=== PATIENT | female | born 1940 | race Caucasian/White ===

== ENCOUNTER 2018-04-05 11:33 | Day surgery (SDC) | payer MEDICARE, BC ==
[~2018-04-05] VITALS: Ht 165.1 cm; Wt 63.6 kg
--- NOTE | ~2018-04-05 | OP ---
PATIENT NAME: SONIA OCHOA MEDICAL RECORD: [id number] :38 LOCATION:[facility] ADMISSION DATE: SURGEON: BAN CHAVEZ MD DATE OF OPERATION: 04/05/2018 PROCEDURE: EGD with biopsy. REFERRING PHYSICIAN: Dr. Edmond Griffith. INDICATIONS: Ms. Ochoa is a delightful 77-year-old woman who has had symptoms of GE reflux and breakthrough heartburn symptoms. She has been taking omeprazole 40 mg twice a day and Carafate 4 times a day and still has breakthrough symptoms. She has also been having diarrhea, although in clinic visit in November 2017, she described having constipation for which she was taking MiraLax. She presents for outpatient EGD. PREMEDICATIONS: Total IV anesthesia (propofol 170 mg) (COPD, obstructive sleep apnea). INSTRUMENT: Olympus video gastroscope. PROCEDURE AND FINDINGS: After receiving informed consent, Ms. Ochoa's posterior pharynx was anesthetized with Cetacaine spray. She was placed in left lateral decubitus position, sedated as per anesthesia. After achieving adequate level of sedation, gastroscope was introduced per orally and advanced into duodenum without difficulty. The esophageal mucosa was without erythema, ulcers, strictures, masses, and appeared normal down the GE junction. A small hiatal hernia is present. Biopsies were taken from the mid and distal esophagus to evaluate for eosinophilic esophagitis and GE reflux. Gastric mucosa was notable for moderate streaky erythema in the distal body of the stomach extending to the antrum. Antral biopsies were obtained to rule out Helicobacter pylori. There were no lesions seen in the cardia, fundus or body of the stomach. There were a few small white mucosal patches in the prepyloric region suggestive of intestinal metaplasia. Pylorus was patent and competent. Duodenal mucosa was without erythema or ulcers and appeared normal through the second portion. Biopsies were taken from the second portion of duodenum to rule out celiac disease. The gastroscope was then withdrawn. Ms. Ochoa tolerated the procedure well, no immediate complications. ASSESSMENT: 1. Small hiatal hernia. 2. Moderate gastritis, may be secondary to nonsteroidal anti-inflammatory drugs, to rule out Helicobacter pylori. RECOMMENDATIONS: 1. Upper GI series. 2. Follow up histopathology. 3. Continue omeprazole 40 mg b.i.d. and Carafate q.i.d. 4. Recommend colonoscopy to evaluate diarrhea and rule out microscopic colitis. TRANSINT:[id number] Voice Confirmation ID: [id number] DOCUMENT ID: [id number] OPERATIVE REPORT [id number] SONIA OCHOA TERRI MD at 1808 CC: [id number] DICTATION DATE: 04/05/18 1415 FOOD CONCESSION MANAGER: 04/05/18 1442 [facility] 04/05/18 [id number] [place] [address]
[2018-04-05 12:05] LABS: HEMATOCRIT 36.7 % (36.0-48.0); HEMOGLOBIN 12.6 g/dL (12-16); MCH 31.4 pg (26.0-34.0); MCHC 34.3 g/dL (31.0-37.0); MCV 91.5 fL (80.0-100.0); MEAN PLATELET VOLUME 9.1 fL (7.4-10.4); RBC 4.01 10x6/uL (4.00-5.40); RDW 13.9 % (11.5-14.5); WBC 4.6 10x3/uL (4.8-10.8)
[2018-04-05] MEDS ORDERED: ASPIRIN81 MG PO (13:00)
[2018-04-05] MEDS ORDERED: BREO ELLIPTA 11 EACH INH (13:00)
[2018-04-05] MEDS ORDERED: REFRESH TEARS15 ML EACH EYE (13:01)
[2018-04-05] MEDS ORDERED: CALCIUM 500 +1 EAC3 PO (13:01)
[2018-04-05] MEDS ORDERED: VOLTAREN100 GM (13:02)
[2018-04-05] MEDS ORDERED: LEXAPRO20 MG PO (13:04)
[2018-04-05] MEDS ORDERED: PLAQUENIL200 MG PO (13:04)
[2018-04-05] MEDS ORDERED: ICAPS MV TAB1 TAB.EC PO (13:05)
[2018-04-05] MEDS ORDERED: ATROVENT HFA12.9 GM INH (13:05)
[2018-04-05] MEDS ORDERED: LEVOXYL50 MCG PO (13:06)
[2018-04-05] MEDS ORDERED: MYRBETRIQ50 MG PO (13:07)
[2018-04-05] MEDS ORDERED: OMEGA 3 FISH OI1 CAP PO (13:08)
[2018-04-05] MEDS ORDERED: OMEPRAZOLE40 MG PO (13:08)
[2018-04-05] MEDS ORDERED: PREMARIN0.625 MG PO (13:09)
[2018-04-05] MEDS ORDERED: CARAFATE1 G PO (13:10)
[2018-04-05] MEDS ORDERED: XOPENEX HFA15 GM INH (13:11)
[2018-04-05] MEDS ORDERED: ULTRAM50 MG PO (13:11)
[2018-04-05 13:15] VITALS: BP 117/69; Ht 165.1 cm; Wt 63.6 kg
== END 2018-04-05 15:02 | disposition home or self-care (01) ==
LOC: D.OPS 11:33
PROVIDERS: Anesthesiology
DX: K21.9 Gastro-esophageal reflux disease without esophagitis (principal); K44.9 Diaphragmatic hernia without obstruction or gangrene; K20.9 Esophagitis, unspecified; G47.33 Obstructive sleep apnea (adult) (pediatric); J44.9 Chronic obstructive pulmonary disease, unspecified; Z01.812 Encounter for preprocedural laboratory examination

== ENCOUNTER → 2018-04-11 08:44 | Outpatient (CLI) | payer MEDICARE, BC ==
[2018-04-05 13:15] VITALS: BMI 23.3
[~2018-04-11 08:44] MED LIST: ASPIRIN81 MG PO; ATROVENT HFA12.9 GM INH; BREO ELLIPTA 11 EACH INH; CALCIUM 500 +1 EAC3 PO; CARAFATE1 G PO; ICAPS MV TAB1 TAB.EC PO; LEVOXYL50 MCG PO; LEXAPRO20 MG PO; MYRBETRIQ50 MG PO; OMEGA 3 FISH OI1 CAP PO; OMEPRAZOLE40 MG PO; PLAQUENIL200 MG PO; PREMARIN0.625 MG PO; REFRESH TEARS15 ML EACH EYE; ULTRAM50 MG PO; VOLTAREN100 GM; XOPENEX HFA15 GM INH
== END | disposition home or self-care (01) ==
LOC: D.RAD 08:44
DX: R12 Heartburn (principal); R10.13 Epigastric pain

== ENCOUNTER 2018-06-07 11:34 | Day surgery (SDC) | payer MEDICARE, BC ==
[~2018-06-07] VITALS: Ht 165.1 cm; Wt 62.7 kg
--- NOTE | ~2018-06-07 | OP ---
PATIENT NAME: SONIA OCHOA MEDICAL RECORD: [id number] :38 LOCATION:[facility] ADMISSION DATE: SURGEON: BAN CHAVEZ MD DATE OF OPERATION: 06/07/2018 PROCEDURE: Colonoscopy with biopsy and polypectomy. INDICATIONS: Ms. Ochoa is a delightful 77-year-old woman with a recent history of diarrhea. Her last colonoscopy was with Dr. Denis Meyers, 05/07/2015 with finding showing diverticulosis of the sigmoid colon and internal hemorrhoids. She presents for outpatient colonoscopy to further evaluate her symptoms of diarrhea. PREMEDICATIONS: Total IV anesthesia (COPD, obstructive sleep apnea, ASA 3) propofol 200 mg. INSTRUMENT: VSoft video colonoscope, pediatric. PROCEDURE AND FINDINGS: After receiving informed consent, Ms. Ochoa was placed in left lateral decubitus position, sedated as per anesthesia. After achieving adequate level of sedation, digital rectal exam was performed that showed no external hemorrhoidal tags, fissures or fistulas, normal sphincter tone, no palpable rectal masses. Colonoscope was introduced per rectally and advanced to the cecum. The cecum, IC valve, and appendiceal orifice were identified. As the colonoscope was withdrawn, careful inspection was made of the pena of the colon. Overall mucosa had normal vascular and fold pattern. There was minimal patchy erythema in the ascending colon and biopsies were obtained to rule out microscopic colitis, not Helicobacter pylori, rule out microscopic colitis. There were multiple diverticula seen scattered in the sigmoid colon (moderate) and there was a 0.3-0.5 cm sessile polyp in the sigmoid colon, removed with hot biopsy forcep technique. Retroflexion in rectum showed mild internal hemorrhoids. A [id number] prep was present. Stool was collected during the procedure for studies. Withdrawal time was 10 minutes. Ms. Ochoa tolerated procedure well, no immediate complications. ASSESSMENT: 1. Moderate sigmoid diverticulosis coli. 2. Minimal nonspecific erythema involving the ascending colon, status post biopsy. 3. Small sigmoid polyp status post polypectomy. 4. X-TAG. RECOMMENDATIONS: 1. Follow up histopathology. 2. Avoid aspirin, nonsteroidal anti-inflammatory drugs and TOLLIVER-2 inhibitors 14 days post polypectomy. 3. High fiber diet. 4. Colonoscopy p.r.n. TRANSINT:[id number] Voice Confirmation ID: [id number] DOCUMENT ID: [id number] OPERATIVE REPORT [id number] SONIA OCHOA TERRI MD at 1534 CC: [id number] DICTATION DATE: 06/07/18 1449 [employer]: 06/07/18 184 [facility] 06/07/18 [id number] [place] [id number]
[2018-06-07 12:12] LABS: BASOPHILS 0.2 % (0-2); EOSINOPHILS 1.1 % (0-7); HEMATOCRIT 36.8 % (36.0-48.0); HEMOGLOBIN 12.7 g/dL (12-16); LYMPHOCYTES 39.9 % (15-50); MCHC 34.5 g/dL (31.0-37.0); MCV 89.8 fL (80.0-100.0); MEAN PLATELET VOLUME 8.9 fL (7.4-10.4); MONOCYTES 9.6 % (2-11); NEUTROPHILS 49.2 % (40-80); PLATELET COUNT 204 10x3/uL (130-400); WBC 4.7 10x3/uL (4.8-10.8)
[2018-06-07 12:28] LABS: CALC OSMOLALITY 271 mosm/kg (275-300); CALCIUM 8.7 mg/dL (8.5-10.1); CHLORIDE - SERUM 98 mmol/L (98-107); CREATININE - SERUM 0.7 mg/dL (0.6-1.3); GLUCOSE 95 mg/dL (74-106); POTASSIUM - SERUM 3.3 mmol/L (3.5-5.1); SODIUM 136 mmol/L (136-145); UREA NITROGEN 13 mg/dL (7-18); eGFR NON AFRICAN AMERICAN 85 mL/min (90-120)
[2018-06-07 12:41] VITALS: BP 110/54; Ht 165.1 cm; Wt 62.7 kg
== END 2018-06-07 15:50 | disposition home or self-care (01) ==
LOC: D.OPS 11:34
PROVIDERS: Anesthesiology
DX: K64.8 Other hemorrhoids (principal); K57.30 Diverticulosis of large intestine without perforation or abscess without bleeding; D12.5 Benign neoplasm of sigmoid colon; R19.7 Diarrhea, unspecified; J44.9 Chronic obstructive pulmonary disease, unspecified; G47.33 Obstructive sleep apnea (adult) (pediatric); Z01.812 Encounter for preprocedural laboratory examination

== ENCOUNTER 2018-10-04 15:55 | Emergency (ER) | payer MEDICARE, BC ==
[~2018-10-04] VITALS: Ht 165.1 cm; Wt 65.9 kg
[2018-10-04 16:00] VITALS: Ht 165.1 cm; Wt 65.9 kg
[2018-10-04 16:56] VITALS: BP 122/70
== END 2018-10-04 16:57 | disposition home or self-care (01) ==
LOC: D.ER 15:55
DX: R33.8 Other retention of urine (principal)

== ENCOUNTER 2019-07-22 08:25 | Day surgery (SDC) | payer MEDICARE, BC ==
[~2019-07-22] VITALS: Ht 165.1 cm; Wt 68.2 kg
[2019-07-22 09:02] LABS: HEMOGLOBIN 13.8 g/dL (12-16); MCH 31.2 pg (26.0-34.0); MCHC 34.5 g/dL (31.0-37.0); MCV 90.5 fL (80.0-100.0); MEAN PLATELET VOLUME 9.1 fL (7.4-10.4); RBC 4.42 10x6/uL (4.00-5.40); RDW 13.6 % (11.5-14.5); WBC 5.7 10x3/uL (4.8-10.8)
[2019-07-22] MEDS ORDERED: FLUTICASONE PRO16 GM NASAL (09:30)
[2019-07-22] MEDS ORDERED: VITAMIN D250000 UNIT PO (09:32)
[2019-07-22] MEDS ORDERED: ALENDRONATE SOD40 MG PO (09:32)
[2019-07-22] MEDS ORDERED: PROZAC10 MG PO (09:33)
[2019-07-22] MEDS ORDERED: ZYRTEC10 MG PO (09:34)
[2019-07-22] MEDS ORDERED: MIRALAX17 GM PO (09:35)
[2019-07-22 09:50] VITALS: BP 120/96; Ht 165.1 cm; Wt 68.2 kg
--- NOTE | 2019-07-22 11:53 | NUR ---
PT IV REMOVED AT THIS TIME, INTACT NO REDNESS OR SWELLING NOTED AT SITE.
--- NOTE | 2019-07-22 12:21 | NUR ---
1200 IV DC'D. CATHETER TIP INTACT. NO BLEEDING AT SITE AFTER HOLDING PRESSURE. BANDAID APPLIED. 1222 PT DC'D HOME VIA WC. PT HAS HER PORTABLE OXYGEN ON AT 2L/MIN.
--- NOTE | 2019-07-25 12:05 | OP ---
PATIENT NAME: SONIA BROCK MEDICAL RECORD: [id number] :38 LOCATION:[facility] ADMISSION DATE: SURGEON: STUART LOPEZ DO DATE OF OPERATION: 07/22/2019 PROCEDURE: Colonoscopy with polypectomy and biopsies. INDICATIONS FOR PROCEDURE: Abnormal findings on CT with concern for possible rectal mass. The patient also has a history of chronic constipation and a positive stool guaiac. SCOPE: Olympus video pediatric colonoscope. MEDICATIONS: Propofol 250 mg IV per anesthesia. WITHDRAWAL TIME: 14 minutes. ESTIMATED BLOOD LOSS: Minimal. COMPLICATIONS: None immediate. FINDINGS: Informed consent was given. The patient was made comfortable with the above medication. After reaching an adequate level of sedation by slow IV push, the patient was placed on her left side. A digital rectal examination was performed and was normal. The endoscope was advanced under direct visualization through the rectum to the cecum, confirmed by the presence of the appendiceal orifice and ileocecal valve. The endoscope was slowly withdrawn and mucosa was carefully examined. The prep quality was good. There was a single polyp visualized on today's examination. It was a benign appearing sessile polyp, which measured approximately 3-4 mm in diameter. It was removed using a hot forceps from the transverse colon. There was evidence of mild diverticulosis involving the distal descending and sigmoid colon. There was no evidence of diverticulitis. Retroflexion was performed in the rectum with visualization of grade I internal hemorrhoids without bleeding. There was no mass visualized in the rectum. Random cold forceps biopsies were taken from the rectum to submit for histopathology. The endoscope was withdrawn from the patient. The patient tolerated the procedure well and there were no immediate complications. IMPRESSION: 1. Mild diverticulosis of the descending and sigmoid colon. 2. A single benign-appearing transverse polyp was removed. 3. Grade I internal hemorrhoids without active bleeding. 4. Random rectal biopsies were taken. PLAN AND RECOMMENDATIONS: 1. Discharge home when recovery parameters are met. 2. Follow up biopsy specimen results. 3. High fiber diet. 4. Continue current medications. 5. No further recall is necessary based on the patient's age, unless symptoms warrant evaluation. 6. Further recommendations to follow biopsy results. TRANSINT:[id number] Voice Confirmation ID: [id number] DOCUMENT ID: [id number] OPERATIVE REPORT [id number] SONIA BROCK STUART LOPEZ DO at 1205 CC: [id number] DICTATION DATE: 07/22/19 1048 SLOOP CAPTAIN: 07/22/19 1249 [facility] 07/22/19 [id number] [place] [address]
== END 2019-07-22 12:23 | disposition home or self-care (01) ==
LOC: D.OPS 08:25
PROVIDERS: Anesthesiology; ATTEND Internal Medicine Gastroenterology
DX: R93.89 Abnormal findings on diagnostic imaging of other specified body structures (principal); K59.09 Other constipation; R19.5 Other fecal abnormalities; J44.9 Chronic obstructive pulmonary disease, unspecified; E07.9 Disorder of thyroid, unspecified; I25.2 Old myocardial infarction